=== PATIENT | female | born 1985 ===

== ENCOUNTER 2018-04-24 15:28 | Emergency (ER) | payer OTHER ==
--- NOTE | 2018-04-24 15:35 | ER Report ---
History and Physical Time Seen By MD: 15:35 HPI/ROS CHIEF COMPLAINT: Depression HISTORY OF PRESENT ILLNESS: This is a 32-year-old female presents to the emergency department for depression. Patient's states that over the last year or so she's had some depression that she's been struggling with, she's been trying to compensate by drinking alcohol. Patient also states that she tried some Zoloft about 6 months ago which didn't work, she weaned herself off. Patient has been free of Zoloft for about 6 months now. Patient states that she' s been drinking alcohol today, she's had approximately 4 shots total. Denies using any other drugs. Patient denies homicidal or suicidal thoughts. Patient is tearful seeking assistance with her depression and alcohol consumption, she would like to be admitted to the behavioral health unit. Patient denies chest pain, shortness of breath, headaches, nausea or vomiting. No fevers or aches. REVIEW OF SYSTEMS: Constitutional: No fever, no chills. Eyes: No discharge. ENT: No sore throat. Cardiovascular: No chest pain, no palpitations. Respiratory: No cough, no shortness of breath. Gastrointestinal: No abdominal pain, no vomiting. Genitourinary: No hematuria. Musculoskeletal: No back pain. Skin: No rashes. Neurological: No headache. Psychiatric: As above. Allergies: Coded Allergies: Sulfa (Sulfonamide Antibiotics) (Verified Allergy, Intermediate, RASH, 04/24) Home Meds No Active Prescriptions or Reported Meds Past Medical/Surgical History Patient has a past medical and surgical history of depression, anxiety, alcohol abuse and alcohol dependence. Reviewed Nurses Notes: Yes Constitutional Vital Sign - Last 24 Hours 04/24/18 04/24/18 15:31 16:55 Temp 98.5 Pulse 129 100 Resp 24 B/P (MAP) 143/88 123/82 (96) Pulse Ox 93 94 O2 Delivery Room Air Room Air Physical Exam General Appearance: The patient is alert, has no immediate need for airway protection and no signs of toxicity. Eyes: Pupils equal and round no pallor or injection. ENT, Mouth: Mucous membranes are moist. Respiratory: There are no retractions, lungs are clear to auscultation. Cardiovascular: Regular rate and rhythm. Gastrointestinal: Abdomen is soft and non tender, no masses, bowel sounds normal. Neurological: Alert and oriented 4. Moving all extremities. Following all commands. No focal neuro deficits. Skin: Warm and dry, no rashes. Small superficial abrasion to right upper arm. Musculoskeletal: Neck is supple non tender. Extremities are nontender, nonswollen and have full range of motion. Psychiatric: Patient is tearful, however she is making eye contact, subdued, interacting well answering questions appropriately. DIFFERENTIAL DIAGNOSIS: After history and physical exam differential diagnosis was considered for depression. Medical Decision Making Data Points Result Diagram: 04/24/18 1553 04/24/18 1553 Laboratory Hematology Test 04/24/18 15:31 04/24/18 15:53 Urine Color Colorless Urine Clarity Clear Urine pH 5.0 pH (4.8-9.5) Urine Specific Patriot 1.001 Urine Protein Negative mg/dL (NEGATIVE) Urine Glucose (UA) Negative mg/dL (NEGATIVE) Urine Ketones Negative mg/dL (NEGATIVE) Urine Blood Small (NEGATIVE) Urine Nitrite Negative (NEGATIVE) Urine Bilirubin Negative (NEGATIVE) Urine Urobilinogen Negative mg/dL (0.2-1.9) Urine Leukocyte Esterase Negative (NEGATIVE) Urine RBC None /HPF (0-2/HPF) Urine WBC None /HPF (0-5/HPF) Urine Squamous Epithelial Cells None /LPF (</=FEW) Urine Bacteria Negative /HPF (NONE-FEW) Urine Mucus None /HPF (NONE-FEW) Urine HCG, Qualitative Negative (NEGATIVE) Urine Opiates Screen Negative Urine Barbiturates Screen Negative Ur Tricyclic Antidepressants Screen Negative Urine Phencyclidine Screen Negative Urine Amphetamines Screen Negative Urine Benzodiazepines Screen Negative Urine Cocaine Screen Negative Urine Cannabinoids Screen Negative Red Blood Count 5.13 M/uL (4.17-5.56) Mean Corpuscular Volume 96.4 fL (80.0-96.0) Mean Corpuscular Hemoglobin 34.5 pg (26.0-33.0) Mean Corpuscular Hemoglobin Concent 35.8 g/dL (32.0-36.0) Red Cell Distribution Width 12.6 % (11.5-14.5) Mean Platelet Volume 7.9 fL (7.2-11.1) Neutrophils (%) (Auto) 56.0 % (39.4-72.5) Lymphocytes (%) (Auto) 32.8 % (17.6-49.6) Monocytes (%) (Auto) 7.8 % (4.1-12.4) Eosinophils (%) (Auto) 3.1 % (0.4-6.7) Basophils (%) (Auto) 0.3 % (0.3-1.4) Nucleated RBC Relative Count (auto) 0.0 /100WBC Neutrophils # (Auto) 5.5 K/uL (2.0-7.4) Lymphocytes # (Auto) 3.2 K/uL (1.3-3.6) Monocytes # (Auto) 0.8 K/uL (0.3-1.0) Eosinophils # (Auto) 0.3 K/uL (0.0-0.5) Basophils # (Auto) 0.0 K/uL (0.0-0.1) Nucleated RBC Absolute Count (auto) 0.00 K/uL Sodium Level 149 mmol/L (137-145) Potassium Level 3.8 mmol/L (3.5-5.0) Chloride Level 111 mmol/L (98-107) Carbon Dioxide Level 18 mmol/L (22-31) Blood Urea Nitrogen 10 mg/dl (7-18) Creatinine 0.60 mg/dl (0.52-1.04) Glomerular Filtration Rate Calc > 60.0 Random Glucose 92 mg/dl (75-110) Calcium Level 9.7 mg/dl (8.4-10.2) Magnesium Level 2.3 mg/dl (1.7-2.2) Total Bilirubin 0.3 mg/dl (0.2-1.3) Aspartate Amino Transf (AST/SGOT) 47 U/L (0-35) Alanine Aminotransferase (ALT/SGPT) 98 U/L (0-56) Alkaline Phosphatase 69 U/L (0-126) Total Protein 7.9 g/dl (6.3-8.2) Albumin 5.1 g/dl (3.5-5.0) Salicylates Level < 10 mg/L Salicylate Last Dose Date unk Acetaminophen Level < 10 ug/ml Serum Alcohol 256 mg/dl Chemistry Test 04/24/18 15:31 04/24/18 15:53 Urine Color Colorless Urine Clarity Clear Urine pH 5.0 pH (4.8-9.5) Urine Specific Patriot 1.001 Urine Protein Negative mg/dL (NEGATIVE) Urine Glucose (UA) Negative mg/dL (NEGATIVE) Urine Ketones Negative mg/dL (NEGATIVE) Urine Blood Small (NEGATIVE) Urine Nitrite Negative (NEGATIVE) Urine Bilirubin Negative (NEGATIVE) Urine Urobilinogen Negative mg/dL (0.2-1.9) Urine Leukocyte Esterase Negative (NEGATIVE) Urine RBC None /HPF (0-2/HPF) Urine WBC None /HPF (0-5/HPF) Urine Squamous Epithelial Cells None /LPF (</=FEW) Urine Bacteria Negative /HPF (NONE-FEW) Urine Mucus None /HPF (NONE-FEW) Urine HCG, Qualitative Negative (NEGATIVE) Urine Opiates Screen Negative Urine Barbiturates Screen Negative Ur Tricyclic Antidepressants Screen Negative Urine Phencyclidine Screen Negative Urine Amphetamines Screen Negative Urine Benzodiazepines Screen Negative Urine Cocaine Screen Negative Urine Cannabinoids Screen Negative White Blood Count 9.9 k/uL (4.5-11.0) Red Blood Count 5.13 M/uL (4.17-5.56) Hemoglobin 17.7 g/dL (12.0-16.0) Hematocrit 49.4 % (34.0-47.0) Mean Corpuscular Volume 96.4 fL (80.0-96.0) Mean Corpuscular Hemoglobin 34.5 pg (26.0-33.0) Mean Corpuscular Hemoglobin Concent 35.8 g/dL (32.0-36.0) Red Cell Distribution Width 12.6 % (11.5-14.5) Platelet Count 192 K/uL (150-450) Mean Platelet Volume 7.9 fL (7.2-11.1) Neutrophils (%) (Auto) 56.0 % (39.4-72.5) Lymphocytes (%) (Auto) 32.8 % (17.6-49.6) Monocytes (%) (Auto) 7.8 % (4.1-12.4) Eosinophils (%) (Auto) 3.1 % (0.4-6.7) Basophils (%) (Auto) 0.3 % (0.3-1.4) Nucleated RBC Relative Count (auto) 0.0 /100WBC Neutrophils # (Auto) 5.5 K/uL (2.0-7.4) Lymphocytes # (Auto) 3.2 K/uL (1.3-3.6) Monocytes # (Auto) 0.8 K/uL (0.3-1.0) Eosinophils # (Auto) 0.3 K/uL (0.0-0.5) Basophils # (Auto) 0.0 K/uL (0.0-0.1) Nucleated RBC Absolute Count (auto) 0.00 K/uL Glomerular Filtration Rate Calc > 60.0 Calcium Level 9.7 mg/dl (8.4-10.2) Magnesium Level 2.3 mg/dl (1.7-2.2) Total Bilirubin 0.3 mg/dl (0.2-1.3) Aspartate Amino Transf (AST/SGOT) 47 U/L (0-35) Alanine Aminotransferase (ALT/SGPT) 98 U/L (0-56) Alkaline Phosphatase 69 U/L (0-126) Total Protein 7.9 g/dl (6.3-8.2) Albumin 5.1 g/dl (3.5-5.0) Salicylates Level < 10 mg/L Salicylate Last Dose Date unk Acetaminophen Level < 10 ug/ml Serum Alcohol 256 mg/dl Toxicology Test 04/24/18 15:31 04/24/18 15:53 Urine Opiates Screen Negative Urine Barbiturates Screen Negative Ur Tricyclic Antidepressants Screen Negative Urine Phencyclidine Screen Negative Urine Amphetamines Screen Negative Urine Benzodiazepines Screen Negative Urine Cocaine Screen Negative Urine Cannabinoids Screen Negative Salicylates Level < 10 mg/L Salicylate Last Dose Date unk Acetaminophen Level < 10 ug/ml Serum Alcohol 256 mg/dl Urinalysis Test 04/24/18 15:31 Urine Color Colorless Urine Clarity Clear Urine pH 5.0 pH (4.8-9.5) Urine Specific Patriot 1.001 Urine Protein Negative mg/dL (NEGATIVE) Urine Glucose (UA) Negative mg/dL (NEGATIVE) Urine Ketones Negative mg/dL (NEGATIVE) Urine Blood Small (NEGATIVE) Urine Nitrite Negative (NEGATIVE) Urine Bilirubin Negative (NEGATIVE) Urine Urobilinogen Negative mg/dL (0.2-1.9) Urine Leukocyte Esterase Negative (NEGATIVE) Urine RBC None /HPF (0-2/HPF) Urine WBC None /HPF (0-5/HPF) Urine Squamous Epithelial Cells None /LPF (</=FEW) Urine Bacteria Negative /HPF (NONE-FEW) Urine Mucus None /HPF (NONE-FEW) Urine HCG, Qualitative Negative (NEGATIVE) ED Course/Re-evaluation ED Course The patient was admitted to room. A history physical obtained. Differential diagnoses were considered. A CBC, CMP and psych panel were obtained. A UA was collected. CBC showing hemoglobin 17.7, hematocrit 49.4, MCV 96.4 chemistry showing sodium 149, magnesium 2.3, AST 47 ALT 98 negative toxicology screen, serum alcohol 256-negative urine. I did speak with Dr. Moreau regarding the patient's case, he has accepted the patient in the his services, the patient will be admitted to the behavioral health unit. The patient is in agreement with this plan of care at this time, she remains tearful but cooperative, making good eye contact. 04/24/2018 4:07:51 pm [facility] evaluating patient. 04/24/2018 4:48:50 pm I did speak with Dr. Moreau regarding the patients case , he has accepted the patient into his services and will be admitted to the behavioral health unit. Decision to Disposition Date: Apr 24, 2018 Decision to Disposition Time: 16:47 Depart Departure Latest Vital Signs Vital Signs Date Time Temp Pulse Resp B/P (MAP) Pulse Ox O2 Delivery O2 Flow Rate FiO2 04/24/18 16:55 100 123/82 (96) 94 Room Air 04/24/18 15:31 98.5 24 Impression: Primary Impression: Depression Additional Impression: Alcohol intoxication Condition: Improved Disposition: XFER TO [facility] New Scripts No Active Prescriptions or Reported Meds Problem Qualifiers Primary Impression: Depression Depression Type: unspecified Qualified Codes: F32.9 - Major depressive disorder, single episode, unspecified Additional Impression: Alcohol intoxication Complication of substance-induced condition: uncomplicated Qualified Codes: F10.920 - Alcohol use, unspecified with intoxication, uncomplicated MARK CASTRO [employer]IST-BC Apr 24, 2018 15:35
[2018-04-24 16:05] LABS: PLATELET COUNT, AUTOMATED 192 K/uL (150-450)
[2018-04-24 16:55] VITALS: BP 123/82
== END 2018-04-24 17:35 ==
LOC: ER 15:40
DX: F32.9 Major depressive disorder, single episode, unspecified (principal); F10.920 Alcohol use, unspecified with intoxication, uncomplicated
CPT/HCPCS: 80305; 80320; 80329; 81001; 81025; 82040; 82247; 82310; 82374; 82435; 82565; 82947; 83735; 84075; 84132; 84155; 84295; 84443; 84450; 84460; 84520; 85025; 99284

== ENCOUNTER 2018-04-24 16:48 | Inpatient (IN) | payer OTHER ==
[~2018-04-24] VITALS: Ht 162.6 cm; Wt 84.4 kg
[2018-04-24 17:39] VITALS: BP 120/78
[2018-04-24] MEDS ORDERED: MAG HYD/AL HYD/SIMETH 30ML UDC PO PRN (18:20)
[2018-04-24] MEDS ORDERED: NICOTINE 21 MG/24 HR PATCH TD SCH (18:30)
[2018-04-24] MEDS ORDERED: NICOTINE INH SYSTEM 10 MG/INH INH ONE (20:12)
[2018-04-24] MEDS ORDERED: NICOTINE CARTRIDGE 1 EA PO ONE (20:12)
[2018-04-24 20:38] VITALS: BP 128/60
[2018-04-24] MEDS: DIAZEPAM 10 MG TAB PO PRN (21:48)
[2018-04-24] MEDS ORDERED: NICOTINE INH SYSTEM 10 MG/INH INH PRN (23:40)
[2018-04-24] MEDS ORDERED: NICOTINE CARTRIDGE 1 EA PO PRN (23:40)
[2018-04-25 00:10] VITALS: BP 125/88
[2018-04-25] MEDS: DIAZEPAM 10 MG TAB PO PRN ×6 (00:20→21:35)
[2018-04-25 03:00] VITALS: BP 127/86
[2018-04-25 08:00] VITALS: BP 100/72
[2018-04-25] MEDS: FOLIC ACID 1 MG TAB PO SCH (08:17)
[2018-04-25] MEDS: THIAMINE HCL 100 MG TAB PO SCH (08:17)
[2018-04-25] MEDS: MULTIVITAMINS PO SCH (08:17)
[2018-04-25 11:55] VITALS: BP 110/82
--- NOTE | 2018-04-25 15:35 | HISTORY AND PHYSICAL ---
DATE OF ADMISSION: April 24, 2018 Patient was seen approximately 0930 hours on the morning of 25 April 2018 for note concerning this dictation. PRESENTING PROBLEM/CHIEF COMPLAINT "I've been drinking too much." HISTORY OF PRESENT ILLNESS This is a very pleasant, 32-year-old female who came to the [facility] Emergency Room on a voluntary basis for help with depressed mood and alcohol withdrawal. Patient was admitted without incident, was given some diazepam for CIWA protocol throughout the night for alcohol withdrawal. Patient up and alert, able to eat breakfast, able to communicate with this provider and other staff members. Patient reports she has been drinking up to a fifth of vodka a day. She has been feeling a little down. She has been drinking at this amount for up to about a year now. She is well aware that specific stressors in her life seem to correlate to the degree of alcohol use. She states that she and her had been fighting about money at times, and alcohol interferes in their relationship. Patient reports depressive symptoms in that she tends to cry more often and for no apparent reason. When asked about appetite, patient reports her appetite is okay. No weight changes. Her energy levels have been a little down. Concentration a little down. She continues to have interest in hiking and crocheting when she can do them. Her sleep has been poor, and she attributes this to alcohol as well. Her mood has been down. Patient denies any history of suicidal thoughts or attempts. Patient denies any ori or psychosis. She has infrequent panic-like attack symptoms at times. No PTSD, phobias, OCD, self-harm, or somatization symptoms. MENTAL HEALTH HISTORY Patient reports never being on an inpatient unit for psychiatric reasons before. She has never been to rehab. She has gone to AA meetings in the past, but is not attending them now. She has had no formal mental health counseling or therapy. Patient does report being on Zoloft at one point in the past. It needs further evaluation, but it appears she was on 50 mg for six months, likely prescribed through a primary care provider. Patient reports she tried to increase it to 100 and had side effects of feeling foggy. Patient also experienced lowered sexual libido from Zoloft and eventually stopped taking it. Patient reports no history of suicide attempt. FAMILY PSYCHIATRIC HISTORY Patient reports many members of her family, including her mother, father, their parents, as well as other members of extended family on both sides suffering from alcoholism. Patient reports her mother's brother and two of her dad's brothers were using drugs as well. There is no other known anxiety or depression in her family, and no suicides in the family. PAST MEDICAL HISTORY Patient reports overall feeling in good health. ALLERGIES She is allergic to some ENVIRONMENTAL ALLERGENS including ANIMALS and SULFA MEDICATIONS. CURRENT MEDICATIONS She is not on any medications for medical cause currently. SOCIAL HISTORY Patient was born in [place], raised all over the [facility] and to some degree in [place] as well. Her parents were at the time of her . She reports they did divorce, but then remarried, and are still together now. Patient has one brother and one sister. The patient herself is the oldest. She is a high school graduate, did not go to college, and did not participate in any experience. She has been working for the [employer] as the company, she states, for over 15 years, and patient has been working at this particular [employer] for four years. She states she likes her work. The patient has been 11 years. They have three children together , ages 9, 11, and 13. She lives together with her and children here in the [facility]. LEGAL HISTORY The patient denies any legal history. SUBSTANCE ABUSE HISTORY Patient has tried cannabis in the past with no negative experiences. Patient continues to smoke nicotine around half a pack a day. Alcohol remains her substance of choice at this time. PHYSICAL EXAMINATION Please see emergency room note. Notable for: GENERAL: A 32-year-old female, no acute medical distress. VITAL SIGNS: Vital signs at time of admission, temperature 98.5, pulse 129, respiratory rate 24, blood pressure 143/88, pulse oximetry 93 on room air. LABORATORY DATA CBC notable for hemoglobin and hematocrit elevated at 17.7 and 49.4 respectively. MCV and MCH elevated at 96.4 and 34.5. Chemistry panel notable for AST and ALT elevated at 47 and 98 respectively. Urinalysis: Small urine blood present; otherwise unremarkable. Toxicology screen negative for substances of abuse with a serum alcohol level of 256. MENTAL STATUS EXAMINATION GENERAL APPEARANCE, BEHAVIOR, AND ATTITUDE: This is a well-groomed, 32-year- old female making good eye contact, interacting well with this provider and other treatment team staff. Psychomotor agitation a little present, being treated actively with alcohol withdrawal protocol. No bizarre mannerisms or tics. Brief periods of tearfulness when taking about stressors at home. SPEECH: Within normal limits. Regular rate, rhythm, volume, and tone. MOOD: Described as frustrated and depressed at times. AFFECT: Constricted and mood congruent. THOUGHT PROCESSES: Logical, goal directed. No loose associations or flight of ideas. THOUGHT CONTENT: Free of auditory or visual hallucinations, ideas of reference , thought broadcasting, delusions, obsessions, compulsions. Patient adamantly denying suicidal or homicidal ideations. SENSORIUM: Clear. COGNITION: Alert and oriented to person, place, time, and situation. MEMORY: Immediate, recent, and remote estimated intact. INTELLIGENCE: Average based on interview. INSIGHT AND JUDGMENT: Considered grossly intact in the absence of alcohol use. Patient presenting voluntarily for treatment. ASSESSMENT This is a very pleasant, 32-year-old female suffering from alcohol use disorder and mood disorder secondary to alcohol use, rule out persisting depressive disorder. Patient very polite, taking an active role in her treatment. Patient verbalizes a desire to abstain from alcohol upon discharge from this unit. Will continue to treat alcohol withdrawal with diazepam per [facility] protocol and will look into other medications such as trazodone to help with sleep and depression. DIAGNOSES 1. Alcohol use disorder, severe. 2. Alcohol intoxication. 3. Alcohol withdrawal. 4. 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 5. Patient having supportive family relationships. PLAN 1. Admit to the unit. 2. Necessary precautions to be implemented. 3. Patient will participate in individual and group therapy. 4. Medications will be adjusted and titrated accordingly. 5. Collateral information will be obtained. 6. Estimated length of stay three to five days. MTDD
[2018-04-25 16:22] VITALS: BP 132/68
[2018-04-25 21:10] VITALS: BP 120/79
[2018-04-26 00:40] VITALS: BP 129/82
[2018-04-26] MEDS: DIAZEPAM 10 MG TAB PO PRN (00:59)
[2018-04-26 07:40] VITALS: BP 122/86
[2018-04-26] MEDS: FOLIC ACID 1 MG TAB PO SCH (08:08)
[2018-04-26] MEDS: MULTIVITAMINS PO SCH (08:09)
[2018-04-26] MEDS: THIAMINE HCL 100 MG TAB PO SCH (08:09)
--- NOTE | 2018-04-26 08:55 | BHS Progress Note ---
[facility] - Subjective Progress Notes Subjective Patient very compliant and polite on the unit, taking an active role in her treatment. Alcohol withdrawal ongoing. Will start trazadone tonight, Patient will likely be able to discharge tomorrow. Mood improving, appetite good, no other concerns. Labs in AM. Suicidal Ideation: None Homicidal Ideation: None [facility] - Objective Physical Exam Vital Signs Vital Signs Date Time Temp Pulse Resp B/P (MAP) Pulse Ox O2 Delivery O2 Flow Rate FiO2 04/26/18 07:40 98.2 92 16 122/86 (98) 97 Room Air Muscle Strength and Tone: WNL Gait and Station: Steady [facility] Medications Reviewed: Side Effects, Benefits of Medication, Risks Allergies Reviewed: Yes Mental Status Exam General Appearance: Casual, Well Groomed, Good Eye Contact, Cooperative, Polite , Good Interaction, No Unkept, No Tearful, No Psychomotor Agitation, No Psychomotor Retardation, No Bizarre Mannerisms, No Tics Speech: Clear, Spontaneous, Normal Rate, Normal Rhythm, Normal Volume, Normal Tone Mood: Dysthmic/Depressed (improving) Affect: Full and Appropriate, Calm, No Sad, No Neutral, No Flat, No Withdrawn, No Tearful, No Anxious, No Agitated Thought Process: Organized, Logical, Goal Directed, No Loose Associations, No Flight of Ideas Thought Content: No Suicidal Ideation, No Homicidal Ideation, No Delusions, No Auditory Halllucinations, No Visual Hallucinations, No Thought Broadcasting, No Ideas of Reference, No Obsessions, No Compulsions Sensorium: Clear Cognition: Alert & Oriented-Person, Alert & Oriented-Place, Alert & Oriented- Time, [id number] Memory: Immediate, Recent, Remote Intelligence: Average Insight Judgment: Fair (much improvement in absence in alcohol use. ) [facility] Assessment and Plan [id number] Encounter Date: Apr 26, 2018 Ujar-or-Iptp Encounter Time: 08:30 [facility] Plan: Necessary Precautions, Individual/Group Therapy, Admin/Titrate Meds, Educate Patient Tobacco Medications: Started Multpiple Antipsychotics Used: No Problems: (1) Alcohol withdrawal Status: Acute (2) Alcohol use disorder, severe, in controlled environment Status: Chronic (3) Alcohol-induced mood disorder Optional Permanent Comment: alcohol related mood disorder verses persisting depressive disorder Last Edited By: Damir Jack on Apr 26, 2018 08 :50 Condition 1. continue treatment. 2. start trazadone tonight. 3. labs in AM. 4. probable discharge tomorrow. Problem Qualifiers (1) Alcohol withdrawal: Complication of substance-induced condition: uncomplicated Qualified Codes: F10.230 - Alcohol dependence with withdrawal, uncomplicated DAMIR JACK MD Apr 26, 2018 08:55
[2018-04-26 11:35] VITALS: BP 118/82
[2018-04-26] MEDS: DOCUSATE SODIUM 100 MG CAP PO SCH ×2 (12:55→21:15)
[2018-04-26] MEDS ORDERED: traZODone HCL 50 MG TAB PO SCH (21:00)
[2018-04-26 21:15] VITALS: BP 110/52
[2018-04-27 06:21] VITALS: BP 129/85
[2018-04-27 06:30] LABS: PLATELET COUNT, AUTOMATED 152 K/uL (150-450)
[2018-04-27] MEDS: THIAMINE HCL 100 MG TAB PO SCH (08:11)
[2018-04-27] MEDS: DOCUSATE SODIUM 100 MG CAP PO SCH (08:12)
[2018-04-27] MEDS: FOLIC ACID 1 MG TAB PO SCH (08:12)
[2018-04-27] MEDS: MULTIVITAMINS PO SCH (08:12)
[2018-04-27] MEDS ORDERED: IBUPROFEN 200 MG TAB PO PRN (08:50)
[2018-04-27] MEDS ORDERED: NIC10R INH (10:21)
[2018-04-27] MEDS ORDERED: TRAZ-163 PO (10:22)
--- NOTE | 2018-04-27 15:26 | DISCHARGE SUMMARY ---
DATE OF ADMISSION: April 24, 2018 DATE OF DISCHARGE: April 27, 2018 Patient was seen on April 27, 2018 on the date of this dictation. FINAL DIAGNOSES 1. Alcohol use disorder, severe. 2. Substance-induced mood disorder. REASON FOR ADMISSION This is a 32-year-old female admitted to the unit on a voluntary basis after she presented to the Emergency Room requesting help with alcohol withdrawal and depression. REVIEW OF SYSTEMS Please see emergency room note for complete review of systems. She is denying nausea, pain. PHYSICAL EXAMINATION VITAL SIGNS: Vital signs on the morning of discharge include temperature 99.5, pulse 107, respirations 16, oxygen saturation 94% on room air, blood pressure 129/85. LABORATORY DATA Complete in the Emergency Room. Hemoglobin and hematocrit were elevated at 17.7 and 49.4. MCV and MCH were elevated at 96.4 and 34.5. AST and ALT elevated at 47 and 98 respectively. Toxicology screen was negative for substances of abuse. Her serum alcohol level on admission was 256. A TSH was completed with the result of 2.36, and a free T4 resulted at 0.076 and low. Free T3 is pending at the time of discharge. MENTAL STATUS EXAMINATION GENERAL APPEARANCE, BEHAVIOR, AND ATTITUDE: Patient is pleasant and cooperative. She appears her stated age. She makes good eye contact. SPEECH: Clear, spontaneous, and of normal rate, rhythm, and volume. MOOD: Described as good. She is reporting readiness for discharge. AFFECT: Rangeful and appropriate. THOUGHT PROCESSES: Overall logical and goal directed. No loose associations or flight of ideas. THOUGHT CONTENT: She denies suicidal thoughts, denies homicidal thoughts, denies any auditory, visual, or other hallucinations. No delusions are elicited. SENSORIUM: Clear. COGNITION: She is alert and oriented to person, place, time, and situation. MEMORY: Immediate, recent, and remote estimated grossly intact. INTELLIGENCE: Average based upon interview. INSIGHT AND JUDGMENT: Good. She is reporting readiness for discharge, reporting plan to maintain sobriety, and she has scheduled appointments for followup care. TREATMENT Patient received medications, monitored with the [facility] protocol through her withdrawal period. She participated in individual and group education and therapy. HOSPITAL COURSE Patient was pleasant and cooperative throughout her stay. She was monitored per the [facility] protocol, and withdrawal period was without complications. She did start trazodone for sleep, reporting good results. CONDITION OF PATIENT ON DISCHARGE Considered stable and of minimal risk to herself and others, appropriate for outpatient management. DISPOSITION Patient is discharged to home. She is to follow up with B[facility] at [facility] for [facility] therapy. She is to follow up with her primary care provider for health concerns, including the thyroid followup and for consideration of continued trazodone as needed for sleep. DISCHARGE MEDICATIONS Trazodone 100 mg, take one-half to one pill at bedtime as needed for sleep. The 24-hour crisis line number was provided should symptoms or problems return. The risks, benefits, and alternatives of the above discharge plan were discussed with this client. Informed consent was given to proceed with the above discharge plan by this competent patient. HANH
== END 2018-04-27 11:05 | disposition home or self-care (01) | DRG 897 ==
LOC: BHS 16:48
PROVIDERS: ADMIT Psychiatry & Neurology Psychiatry; ATTEND Psychiatry & Neurology Psychiatry
DX: F10.24 Alcohol dependence with alcohol-induced mood disorder (principal); F10.230 Alcohol dependence with withdrawal, uncomplicated; F32.9 Major depressive disorder, single episode, unspecified; F17.210 Nicotine dependence, cigarettes, uncomplicated; Y90.8 Blood alcohol level of 240 mg/100 ml or more; Z81.1 Family history of alcohol abuse and dependence; Z88.2 Allergy status to sulfonamides
CPT/HCPCS: 36415; 82040; 82247; 82310; 82374; 82435; 82565; 82947; 84075; 84132; 84155; 84295; 84439; 84443; 84450; 84460; 84481; 84520; 85025

== ENCOUNTER 2018-08-09 21:07 | Emergency (ER) | payer OTHER ==
[~2018-08-09 21:07] MED LIST: NIC10R INH; TRAZ100T31 PO
--- NOTE | 2018-08-09 21:29 | ER Report ---
History and Physical Time Seen By MD: 21:19 Hx. of Stated Complaint: ALCOHOL DETOX HPI/ROS CHIEF COMPLAINT: Alcohol intoxication, detox HISTORY OF PRESENT ILLNESS: 32-year-old female presents ambulatory to the ER complaining of alcohol intoxication. She is requesting detox. Patient states she drinks 2-3 days per week. She drinks approximately 4-6 shots of vodka. Previous admission back in April of this year. From the through the for similar presentation with depression. She denies other substance use. She takes trazodone 100 mg at bedtime to help her sleep. REVIEW OF SYSTEMS: Respiratory: No cough, no dyspnea. Cardiovascular: No chest pain, no palpitations. Gastrointestinal: No vomiting, no abdominal pain. Musculoskeletal: No back pain. Allergies: Coded Allergies: Sulfa (Sulfonamide Antibiotics) (Verified Allergy, Intermediate, RASH, 08/09/18) Home Meds Reported Medications [Mirena] No Conflict Check, [place] 08/10/18 Trazodone Hcl (TRAZODONE HCL) 100 Mg Tablet, 100 MG PO QHS for 30 Days, TAB 2 Refills Take 1/2 to 1 tablet an hour before intention to sleep at night as needed for sleep. 04/27/18 Nicotine (NICOTROL) 10 Mg/Inh Ctr, 10 MG INH PRN for NICOTINE REPLACEMENT 04/27/18 Reviewed Nurses Notes: Yes Old Medical Records Reviewed: Yes Hx Smoking: Yes Smoking Status: Current: Every Day Smoker, Heavy Tobacco Smoker Exposure to Second Hand Smoke?: No Hx Substance Use Disorder: No Hx Alcohol Use: Yes Constitutional Vital Sign - Last 24 Hours 08/09/18 08/09/18 21:17 23:39 Temp 98.9 Pulse 102 82 Resp 18 16 B/P (MAP) 133/80 113/71 (85) Pulse Ox 97 98 O2 Delivery Room Air Room Air Physical Exam Vital signs stable, afebrile, pulse ox normal General Appearance: The patient is alert, has no immediate need for airway protection and no current signs of toxicity. Eyes: Pupils equal and round no injection. Respiratory: Chest is non tender, lungs are clear to auscultation. Cardiac: regular rate and rhythm Gastrointestinal: Abdomen is soft and non tender, no masses, bowel sounds normal. No hepatomegaly Musculoskeletal: Neck: Neck is supple and non tender. No lymphadenopathy, no thyromegaly Extremities have full range of motion and are non tender. Skin: No rashes or lesions. DIFFERENTIAL DIAGNOSIS: After history and physical exam differential diagnosis was considered for depression including functional and major depression, situational depression, medication side effect, drugs and alcohol abuse. Medical Decision Making Data Points Result Diagram: 08/09/18214308/[id number]/182143 Laboratory Hematology Test 08/09/18 21:44 08/09/18 22:11 Red Blood Count 5.33 M/uL (4.17-5.56) Mean Corpuscular Volume 98.6 fL (80.0-96.0) Mean Corpuscular Hemoglobin 34.0 pg (26.0-33.0) Mean Corpuscular Hemoglobin Concent 34.5 g/dL (32.0-36.0) Red Cell Distribution Width 14.1 % (11.5-14.5) Mean Platelet Volume 8.0 fL (7.2-11.1) Neutrophils (%) (Auto) 46.5 % (39.4-72.5) Lymphocytes (%) (Auto) 40.9 % (17.6-49.6) Monocytes (%) (Auto) 7.5 % (4.1-12.4) Eosinophils (%) (Auto) 4.8 % (0.4-6.7) Basophils (%) (Auto) 0.3 % (0.3-1.4) Nucleated RBC Relative Count (auto) 0.1 /100WBC Neutrophils # (Auto) 2.9 K/uL (2.0-7.4) Lymphocytes # (Auto) 2.5 K/uL (1.3-3.6) Monocytes # (Auto) 0.5 K/uL (0.3-1.0) Eosinophils # (Auto) 0.3 K/uL (0.0-0.5) Basophils # (Auto) 0.0 K/uL (0.0-0.1) Nucleated RBC Absolute Count (auto) 0.00 K/uL Sodium Level 147 mmol/L (137-145) Potassium Level 4.5 mmol/L (3.5-5.0) Chloride Level 106 mmol/L (98-107) Carbon Dioxide Level 28 mmol/L (22-31) Blood Urea Nitrogen 5 mg/dl (7-18) Creatinine 0.70 mg/dl (0.52-1.04) Glomerular Filtration Rate Calc > 60.0 Random Glucose 95 mg/dl (75-110) Calcium Level 9.3 mg/dl (8.4-10.2) Magnesium Level 2.4 mg/dl (1.7-2.2) Total Bilirubin 0.4 mg/dl (0.2-1.3) Aspartate Amino Transf (AST/SGOT) 52 U/L (0-35) Alanine Aminotransferase (ALT/SGPT) 108 U/L (0-56) Alkaline Phosphatase 48 U/L (0-126) Total Protein 8.2 g/dl (6.3-8.2) Albumin 4.9 g/dl (3.5-5.0) Salicylates Level < 10 mg/L Salicylate Last Dose Date unk Acetaminophen Level < 10 ug/ml Serum Alcohol 250 mg/dl Urine Color Colorless Urine Clarity Clear Urine pH 5.0 pH (4.8-9.5) Urine Specific Brinkley 1.002 Urine Protein Negative mg/dL (NEGATIVE) Urine Glucose (UA) Negative mg/dL (NEGATIVE) Urine Ketones Negative mg/dL (NEGATIVE) Urine Blood Small (NEGATIVE) Urine Nitrite Negative (NEGATIVE) Urine Bilirubin Negative (NEGATIVE) Urine Urobilinogen Negative mg/dL (0.2-1.9) Urine Leukocyte Esterase Negative (NEGATIVE) Urine RBC <1 /HPF (0-2/HPF) Urine WBC <1 /HPF (0-5/HPF) Urine Squamous Epithelial Cells None /LPF (</=FEW) Urine Bacteria Negative /HPF (NONE-FEW) Urine Mucus None /HPF (NONE-FEW) Urine HCG, Qualitative Negative (NEGATIVE) Urine Opiates Screen Negative Urine Barbiturates Screen Negative Ur Tricyclic Antidepressants Screen Negative Urine Phencyclidine Screen Negative Urine Amphetamines Screen Negative Urine Benzodiazepines Screen Negative Urine Cocaine Screen Negative Urine Cannabinoids Screen Negative Chemistry Test 08/09/18 21:44 08/09/18 22:11 White Blood Count 6.2 k/uL (4.5-11.0) Red Blood Count 5.33 M/uL (4.17-5.56) Hemoglobin 18.1 g/dL (12.0-16.0) Hematocrit 52.5 % (34.0-47.0) Mean Corpuscular Volume 98.6 fL (80.0-96.0) Mean Corpuscular Hemoglobin 34.0 pg (26.0-33.0) Mean Corpuscular Hemoglobin Concent 34.5 g/dL (32.0-36.0) Red Cell Distribution Width 14.1 % (11.5-14.5) Platelet Count 229 K/uL (150-450) Mean Platelet Volume 8.0 fL (7.2-11.1) Neutrophils (%) (Auto) 46.5 % (39.4-72.5) Lymphocytes (%) (Auto) 40.9 % (17.6-49.6) Monocytes (%) (Auto) 7.5 % (4.1-12.4) Eosinophils (%) (Auto) 4.8 % (0.4-6.7) Basophils (%) (Auto) 0.3 % (0.3-1.4) Nucleated RBC Relative Count (auto) 0.1 /100WBC Neutrophils # (Auto) 2.9 K/uL (2.0-7.4) Lymphocytes # (Auto) 2.5 K/uL (1.3-3.6) Monocytes # (Auto) 0.5 K/uL (0.3-1.0) Eosinophils # (Auto) 0.3 K/uL (0.0-0.5) Basophils # (Auto) 0.0 K/uL (0.0-0.1) Nucleated RBC Absolute Count (auto) 0.00 K/uL Glomerular Filtration Rate Calc > 60.0 Calcium Level 9.3 mg/dl (8.4-10.2) Magnesium Level 2.4 mg/dl (1.7-2.2) Total Bilirubin 0.4 mg/dl (0.2-1.3) Aspartate Amino Transf (AST/SGOT) 52 U/L (0-35) Alanine Aminotransferase (ALT/SGPT) 108 U/L (0-56) Alkaline Phosphatase 48 U/L (0-126) Total Protein 8.2 g/dl (6.3-8.2) Albumin 4.9 g/dl (3.5-5.0) Salicylates Level < 10 mg/L Salicylate Last Dose Date unk Acetaminophen Level < 10 ug/ml Serum Alcohol 250 mg/dl Urine Color Colorless Urine Clarity Clear Urine pH 5.0 pH (4.8-9.5) Urine Specific Brinkley 1.002 Urine Protein Negative mg/dL (NEGATIVE) Urine Glucose (UA) Negative mg/dL (NEGATIVE) Urine Ketones Negative mg/dL (NEGATIVE) Urine Blood Small (NEGATIVE) Urine Nitrite Negative (NEGATIVE) Urine Bilirubin Negative (NEGATIVE) Urine Urobilinogen Negative mg/dL (0.2-1.9) Urine Leukocyte Esterase Negative (NEGATIVE) Urine RBC <1 /HPF (0-2/HPF) Urine WBC <1 /HPF (0-5/HPF) Urine Squamous Epithelial Cells None /LPF (</=FEW) Urine Bacteria Negative /HPF (NONE-FEW) Urine Mucus None /HPF (NONE-FEW) Urine HCG, Qualitative Negative (NEGATIVE) Urine Opiates Screen Negative Urine Barbiturates Screen Negative Ur Tricyclic Antidepressants Screen Negative Urine Phencyclidine Screen Negative Urine Amphetamines Screen Negative Urine Benzodiazepines Screen Negative Urine Cocaine Screen Negative Urine Cannabinoids Screen Negative Toxicology Test 08/09/18 21:44 08/09/18 22:11 Salicylates Level < 10 mg/L Salicylate Last Dose Date unk Acetaminophen Level < 10 ug/ml Serum Alcohol 250 mg/dl Urine Opiates Screen Negative Urine Barbiturates Screen Negative Ur Tricyclic Antidepressants Screen Negative Urine Phencyclidine Screen Negative Urine Amphetamines Screen Negative Urine Benzodiazepines Screen Negative Urine Cocaine Screen Negative Urine Cannabinoids Screen Negative Urinalysis Test 08/09/18 22:11 Urine Color Colorless Urine Clarity Clear Urine pH 5.0 pH (4.8-9.5) Urine Specific Brinkley 1.002 Urine Protein Negative mg/dL (NEGATIVE) Urine Glucose (UA) Negative mg/dL (NEGATIVE) Urine Ketones Negative mg/dL (NEGATIVE) Urine Blood Small (NEGATIVE) Urine Nitrite Negative (NEGATIVE) Urine Bilirubin Negative (NEGATIVE) Urine Urobilinogen Negative mg/dL (0.2-1.9) Urine Leukocyte Esterase Negative (NEGATIVE) Urine RBC <1 /HPF (0-2/HPF) Urine WBC <1 /HPF (0-5/HPF) Urine Squamous Epithelial Cells None /LPF (</=FEW) Urine Bacteria Negative /HPF (NONE-FEW) Urine Mucus None /HPF (NONE-FEW) Urine HCG, Qualitative Negative (NEGATIVE) ED Course/Re-evaluation ED Course Patient was admitted to an examination room. H&P was done. The differential diagnoses was considered. On clinical examination. Patient presents alcohol intoxication. She's requesting medical detox. Patient was admitted previously back in April. 08/09/2018 10:57:10 pm case discussed with Dr. Isa Alexandre psychiatrist on- call, who accepts the patient for admission to [facility]. For medical detox. Decision to Disposition Date: Aug 09, 2018 Decision to Disposition Time: 22:56 Depart Departure Latest Vital Signs Vital Signs Date Time Temp Pulse Resp B/P (MAP) Pulse Ox O2 Delivery O2 Flow Rate FiO2 08/09/18 23:39 82 16 113/71 (85) 98 Room Air 08/09/18 21:17 98.9 Impression: Primary Impression: Alcohol intoxication Additional Impressions: Alcohol use disorder, severe, in controlled environment Depression Condition: Improved Disposition: XFER TO [facility] Problem Qualifiers Primary Impression: Alcohol intoxication Complication of substance-induced condition: uncomplicated Qualified Codes: F10.920 - Alcohol use, unspecified with intoxication, uncomplicated Additional Impressions: Depression Depression Type: unspecified Qualified Codes: F32.9 - Major depressive disorder, single episode, unspecified RAH EID DO Aug 09, 2018 21:29
[2018-08-09 22:15] LABS: PLATELET COUNT, AUTOMATED 229 K/uL (150-450)
[2018-08-09 23:39] VITALS: BP 113/71
[2018-08-10] MEDS ORDERED: Mirena IL (11:17)
== END 2018-08-09 23:41 ==
LOC: ER 21:54
DX: F32.9 Major depressive disorder, single episode, unspecified (principal); F10.229 Alcohol dependence with intoxication, unspecified
CPT/HCPCS: 36415; 80305; 80320; 80329; 81001; 81025; 82040; 82247; 82310; 82374; 82435; 82565; 82947; 83735; 84075; 84132; 84155; 84295; 84443; 84450; 84460; 84520; 85025; 99284

== ENCOUNTER 2018-08-09 23:03 | Inpatient (IN) | payer OTHER ==
[2018-08-10] VITALS (7 sets, daily range): BP systolic 100–133; BP diastolic 48–78
[2018-08-10] MEDS ORDERED: ACETAMINOPHEN 325 MG TAB PO PRN (00:10)
[2018-08-10] MEDS ORDERED: MAG HYD/AL HYD/SIMETH 30ML UDC PO PRN (00:10)
[2018-08-10] MEDS: traZODone HCL 50 MG TAB PO SCH ×3 (01:38→20:59)
[2018-08-10] MEDS ORDERED: LORazepam 1 MG TAB PO PRN (02:30)
[2018-08-10] MEDS ORDERED: NICOTINE CARTRIDGE 1 EA PO PRN (03:40)
[2018-08-10] MEDS: THIAMINE HCL 100 MG TAB PO SCH (08:10)
[2018-08-10] MEDS: MULTIVITAMINS TAB PO SCH (08:10)
[2018-08-10] MEDS: FOLIC ACID 1 MG TAB PO SCH (08:10)
[2018-08-10] MEDS: NICOTINE INH SYSTEM 10 MG/INH INH PRN ×2 (08:17→21:19)
[2018-08-10] MEDS: LORazepam 1 MG TAB PO PRN ×2 (08:30→10:25)
[2018-08-10] MEDS ORDERED: Mirena IL (11:17)
[2018-08-10] MEDS ORDERED: DIAZEPAM 10 MG TAB PO PRN (11:25)
[2018-08-10] MEDS: FLUoxetine HCL 10 MG CAP PO SCH (12:25)
--- NOTE | 2018-08-10 21:09 | HISTORY AND PHYSICAL ---
DATE OF ADMISSION: August 09, 2018 IDENTIFYING INFORMATION Siena Pickett is a 32-year-old female who is a voluntary readmission to [facility]. I interviewed her at 10:00 a.m. on August 10. PRESENTING PROBLEMS AND CHIEF COMPLAINT Alcohol abuse and desire to stop drinking. HISTORY OF PRESENT ILLNESS AND CURRENT MEDICATIONS Siena presented to the Emergency Department last night with a blood alcohol level of 250. She came in requesting detox and was admitted to [facility]. I interviewed on the morning following admission. She has received Ativan for withdrawal symptoms, but is otherwise alert and cooperative. Siena states that she started drinking at about age 17, but it "got bad" when she was about 28 and moved to [place]. She typically drinks about once or twice a week, but when she does drink, she has several drinks and is usually quite intoxicated. Sometimes she drinks in the morning to avoid withdrawal symptoms. Her drink of choice is vodka. She is not able to identify any particular triggers that lead to her drinking. Siena has been an IOP at [facility] since last May, but does not attend AA because of difficulty getting to the meetings. 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 Siena was admitted to [facility] last summer and diagnosed with substance abuse mood disorder. She was drinking heavily at that time and also complaining of depression. Siena says that she feels sad all the time. She lacks a desire to do things, often feels fatigued, has problems sleeping, and has a lot of self-blame. In addition, she complains of anxiety, so she cannot relax and often cannot sleep. She has panic attacks about twice a week. Usually these last one or two minutes, but are accompanied by shortness of breath and a pounding heart. Siena tried taking Zoloft, but felt that it made her "not care." She is still on trazodone for sleep benefit. She denies any history or desire to commit suicide or any history of violence or self-harm. ALLERGIES She is allergic to SULFA. PAST MEDICAL HISTORY Siena enjoys good health typically and has no chronic illnesses. She has never had surgeries. She is an everyday cigarette smoker. She takes Mirena for control. 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 She denies any developmental abuse and had a happy childhood. She has been for 13 years to her and describes their relationship as good and supportive. She has three children, ages 14, 11, and 9. REVIEW OF SYSTEMS Please see Chief Complaint. Patient also denies any history of ori, psychosis, head trauma, or cognitive problems. Although Siena has problems with alcohol, she denies use of other drugs. PHYSICAL EXAMINATION On admission, Siena's blood pressure was 133/80, pulse 102, respirations 18, pulse ox was 97% on room air. She was in no acute physical distress upon presentation to the Emergency Room, and physical examination was unremarkable. LABORATORY DATA Laboratory examination reveals slight elevation of hemoglobin and hematocrit at 18.1 and 52.5 respectively. She also has slight hypernatremia with a sodium of 147. BUN is low at 5. Urine drug screen is entirely negative. MENTAL STATUS EXAMINATION Patient presents as a well-developed, but overweight female appearing about her stated age of 32 years. She is dressed in hospital scrubs. Attitude toward the examination is cooperative throughout the interview, but she does not offer much spontaneously. She is slightly drowsy and has been medicated with Ativan for withdrawal symptoms, but is oriented in all spheres throughout this interview. She describes her mood as "sad," and her affect is consistent with that. She shows some suggestion of psychomotor retardation. Speech is normal, but limited. Responses are clear, logical, and goal directed. She denies any audio or visual hallucinations. She denies any thoughts about suicide or violence. Memory for immediate, recent, and long-term events appears to be intact based on this interview. Intelligence is judged to be average. She also has insight into the consequences of her drinking and believes that she needs to stop. ASSESSMENT Siena meets criteria for alcohol use disorder and acute alcohol withdrawal. In addition, she has some mood symptoms and meets criteria for panic disorder and also has some low-level anxiety chronically. She also meets criteria for major depressive episode. Given the persistence of these symptoms, even when she is not drinking, I believe she meets criteria for major depression. Siena's risk for suicide seems low based on her lack of suicidal thoughts as well as no prior suicide attempts reported. DIAGNOSES 1. Alcohol use disorder. 2. Acute alcohol withdrawal. 3. Major depressive episode, chronic. 4. Panic disorder. PLAN 1. Admit to Behavioral Health with necessary precautions. 2. Will continue to treat alcohol withdrawal symptoms, but switch to the CIWA protocol. 3. To address Siena's problems with depression, I am initiating Prozac 10 mg, hoping also to treat her panic disorder and continuing trazodone 100 mg at bedtime for sleep. 4. We will obtain collateral information from [facility] and coordinate with them regarding her discharge plans. 5. Estimated length of stay three to five days. MTDD
[2018-08-11 00:12] VITALS: BP 103/57
[2018-08-11 06:34] VITALS: BP_SYST 123
[2018-08-11] MEDS: MULTIVITAMINS TAB PO SCH (08:08)
[2018-08-11] MEDS: THIAMINE HCL 100 MG TAB PO SCH (08:08)
[2018-08-11] MEDS: FOLIC ACID 1 MG TAB PO SCH (08:08)
[2018-08-11] MEDS: FLUoxetine HCL 10 MG CAP PO SCH (08:08)
[2018-08-11 10:08] VITALS: BP 105/58
[2018-08-11] MEDS ORDERED: FLUoxetine HCL 10 MG CAP PO ONE (13:10)
[2018-08-11] MEDS: NICOTINE INH SYSTEM 10 MG/INH INH PRN ×2 (14:17→20:06)
--- NOTE | 2018-08-11 18:37 | BHS Progress Note ---
[facility] - Subjective Progress Notes Subjective Siena is progressing well with her detox but we are seeing more signs and symptoms of depression and anxiety. She initially said that she is not depressed today, but then after further discussion she admitted that her depression is an "eight" on a scale of one to ten. Her anxiety is a five. Guilt is also and eight but she denies feeling suicidal today. We talked about stresses and barriers to recovery. Siena goes to work at 2:30 am which interferes with sleep and other activities. She feels tired all the time. Getting to bed early enough often does not happen for her. IOP is not helping. "It is full of people who don't want to be there." Siena goes voluntarily. She can't easily get to and does not have a sponsor. We talked about trying individual therapy at [facility]. Suicidal Ideation: None [facility] - Objective Physical Exam Vital Signs 97.1, 70, 123/44, 94%. Muscle Strength and Tone: WNL Gait and Station: Steady [facility] Medications Reviewed: Side Effects, Benefits of Medication, Risks Mental Status Exam General Appearance: Casual, Good Eye Contact, Cooperative, Polite, Tearful, Psychomotor Retardation Speech: Clear, Other (reduced) Mood: Dysthmic/Depressed Affect: Sad, Anxious Thought Process: Logical Thought Content: No Suicidal Ideation Sensorium: Clear Cognition: Alert & Oriented-Person, Alert & Oriented-Place, Alert & Oriented- Time, [id number] Memory: Immediate, Recent, Remote Intelligence: Average Insight Judgment: Good (Knows she needs to stop drinking. Realistic about how hard this is. ) [facility] Assessment and Plan [id number] Encounter Date: Aug 11, 2018 [id number] Encounter Time: 13:00 [facility] Plan: Necessary Precautions, Individual/Group Therapy, Admin/Titrate Meds, Educate Patient Tobacco Medications: Started Problems: (1) Major depression, chronic Assessment & Plan: Increase Prozac to 20 mgs (2) Panic disorder (3) Alcohol withdrawal Status: Resolved (4) Alcohol use disorder, severe, in controlled environment Status: Chronic Assessment & Plan: Discussed options including AA, individual therapy, residential treatment. Also offered to start naltrexone 50 mgs daily. LISA VEGA DO Aug 11, 2018 18:37
[2018-08-11 19:56] VITALS: BP 122/62
[2018-08-11] MEDS: traZODone HCL 50 MG TAB PO SCH (22:01)
[2018-08-12 06:15] VITALS: BP 102/48
[2018-08-12] MEDS: FOLIC ACID 1 MG TAB PO SCH (08:08)
[2018-08-12] MEDS: MULTIVITAMINS TAB PO SCH (08:08)
[2018-08-12] MEDS: THIAMINE HCL 100 MG TAB PO SCH (08:08)
[2018-08-12] MEDS ORDERED: NALTREXONE HCL 50 MG TAB PO SCH (09:00)
[2018-08-12] MEDS ORDERED: FLUoxetine HCL 20 MG CAP PO SCH (09:00)
[2018-08-12] MEDS ORDERED: FOLI-68 PO (12:47)
[2018-08-12] MEDS ORDERED: FLUO-202 PO (12:47)
[2018-08-12] MEDS ORDERED: NALT50TA15 PO (12:56)
[2018-08-12] MEDS ORDERED: MULT-859 PO (12:56)
[2018-08-12] MEDS ORDERED: THIA100T2 PO (12:58)
[2018-08-12 13:40] VITALS: BP 118/61
[2018-08-12] MEDS: NICOTINE INH SYSTEM 10 MG/INH INH PRN (15:52)
--- NOTE | 2018-08-13 13:17 | SCHAAF DISCHARGE ---
DATE OF ADMISSION: August 09, 2018 DATE OF DISCHARGE: August 12, 2018 ATTENDING PHYSICIAN Vinod Moreau MD The patient was seen at approximately 11:00 hours on August 12, 2018 for note concerning this dictation. REASON FOR ADMISSION This is a 32-year-old female who was admitted on August 09, 2018 for help with pending alcohol withdrawal. The patient was admitted without incident, took an active role in her treatment. Alcohol withdrawal was treated to completion. Potential underlying symptoms of depression were looked into as well. Alcohol withdrawal again was considered mild to moderate in nature, treated to completion. The patient continued to improve. Partner relational problems largely revolving around alcohol use were addressed as well. The patient discharged to home having no thoughts of harm to self or harm to others. PHYSICAL EXAMINATION Please see emergency room note. Notable for polite, cooperative 32-year-old female in no acute medical distress. Vital signs at the time of admission: Temperature 98.5, pulse 129, respiratory rate 24, blood pressure 143/88 and pulse oximetry 93% on room air. At time of discharge from Behavioral Health Unit vital signs showed: Temperature 98.2, pulse 81, respiratory rate 15, blood pressure 118/61 and pulse oximetry 95% on room air. LABORATORY DATA TSH 1.46 in normal range. CBC notable for hemoglobin and hematocrit elevated at 18.1 and 52.5 respectively, MCV and MCH elevated at 98.6 and 34 respectively. Chemistry panel at the time of admission notable for a magnesium elevated slightly at 2.4, elevated sodium as well at 147 and an AST and ALT both elevated mildly at 52 and 108 respectively. Urinalysis on 08/09/18 was overall unremarkable. screen negative. Toxicology screen positive for serum alcohol level of 250, negative for other substances of abuse. MENTAL STATUS EXAMINATION GENERAL APPEARANCE, BEHAVIOR AND ATTITUDE: This is cooperative, polite 32-year-old female, interacting well with this provider and other treatment team staff. The patient also interacting well with her . No bizarre mannerisms or tics and no periods of tearfulness. No psychomotor agitation or retardation. SPEECH: Within normal limits. Regular rate, rhythm, volume and tone. MOOD: Described as good. AFFECT: Full and mood-congruent overall. THOUGHT PROCESSES: Logical and goal-directed, no loose associations or flight of ideas. THOUGHT CONTENT: Free of auditory or visual hallucinations, ideas of reference, thought broadcastings, delusions, obsessions or compulsions. The patient is denying suicidal or homicidal ideation. SENSORIUM: Clear. COGNITION: Alert and oriented to person, place, time and situation. MEMORY: Immediate, recent and remote was estimated intact. INTELLIGENCE: Average, based on interview. INSIGHT AND JUDGMENT: Considered grossly intact in the absence of alcohol use. RESULTS OF TESTING Imaging: None. Laboratory data: See above. Psychological testing: Not done. CONSULTATIONS None. TREATMENT Patient received medications, participated in individual and group therapy. HOSPITAL COURSE The patient's alcohol withdrawal was treated to completion with Diazepam per [facility] protocol. Considered mild to moderate in nature. The patient was continued on Trazodone at 50-150 mg at bedtime with good results, Prozac at 20 mg and Revia 50 mg daily. Again, patient took an active role in her treatment. CONDITION OF PATIENT ON DISCHARGE Stable. Considered a minimal risk to herself or others, appropriate for ongoing outpatient care. DISPOSITION The patient was discharged to home in the care of her . The patient would follow up with outpatient medication and therapy as scheduled. She would abstain from alcohol, encouraged to go to and obtain a sponsor. MEDICATIONS AT TIME OF DISCHARGE 1. Trazodone 50-150 mg p.o. q nightly. 2. Prozac 20 mg daily. 3. Revia 50 mg daily. 4. Multivitamin with Minerals as well as Thiamin and Folic acid over the counter replacement. 5. The patient is to remain on at home control as well. The risks, benefits and alternatives of the above discharge plan were discussed. Informed consent was given to proceed with the above discharge plan by this competent patient and patient's present at time of discharge. HANH
== END 2018-08-12 18:25 | disposition home or self-care (01) | DRG 897 ==
LOC: BHS 23:03
PROVIDERS: ADMIT Psychiatry & Neurology Psychiatry; ATTEND Psychiatry & Neurology Psychiatry
DX: F10.230 Alcohol dependence with withdrawal, uncomplicated (principal); E87.0 Hyperosmolality and hypernatremia; F41.0 Panic disorder [episodic paroxysmal anxiety]; F17.210 Nicotine dependence, cigarettes, uncomplicated; Y90.8 Blood alcohol level of 240 mg/100 ml or more; F32.9 Major depressive disorder, single episode, unspecified; Z63.0 Problems in relationship with spouse or partner; Z91.5 Personal history of self-harm